=== PATIENT | female | born 1945 | race Caucasian/White ===

== ENCOUNTER 2022-12-19 12:36 | Emergency (ER) | payer OTHER ==
[2022-12-19] MEDS ORDERED: Acetaminophen 500 MG TAB ONE (13:36)
[2022-12-19] MEDS ORDERED: fentaNYL 50 mcg/mL 1 mL Vial ONE (13:43)
[2022-12-19] MEDS ORDERED: Ondansetron ODT 4 MG TAB ONE (13:43)
[2022-12-19] MEDS ORDERED: traMADol HCl 50 MG TAB ONE (14:13)
[2022-12-19 14:31] LABS: #Basophils 0.1 10x3/uL (0.0-0.2); #Eosinphils 0.1 10x3/uL (0.0-0.5); #Monocytes 0.8 10x3/uL (0.0-1.1); #Neutrophils 10.8 10x3/uL (1.5-8.4); %Basophils 0.5 % (0.0-2.0); %Eosinophils 0.7 % (0.0-6.0); %Lymphocytes 16.4 % (18.0-47.0); %Monocytes 5.6 % (0.0-10.0); Hematocrit 42.9 % (34.9-44.5); Hemoglobin 14.4 g/dL (12.0-15.5); Mean Corpuscular HGB CONC 33.6 g/dL (32.0-36.0); Mean Corpuscular Hemoglobin 32.1 pg (27.0-33.0); Mean Corpuscular Volume 95.8 fl (81.6-98.3); Mean Platelet Volume 10.3 fl (7.4-10.4); Platelet Count 196 10x3/uL (150-450); RBC Distribution Width 12.1 % (11.5-14.5); Red Blood Cell (RBC) Count 4.48 10x6/uL (3.90-5.03); White Blood Cell (WBC) Count 14.2 10x3/uL (3.5-10.5)
[2022-12-19 14:51] LABS: ALT (SGPT) 15 U/L (8-55); AST (SGOT) 21 U/L (5-34); Albumin 3.8 g/dL (3.4-4.8); Alkaline Phosphatase 69 U/L (40-110); Anion Gap 15 mmol/L (10-20); BUN (Urea Nitrogen) 14 mg/dL (9.8-20.1); Bilirubin, Total 0.5 mg/dL (0.2-1.2); Calc. Creatinine Clearance 0 mL/min (70-130); Calcium 8.8 mg/dL (7.8-10.44); Carbon Dioxide 18 mmol/L (23-31); Chloride 104 mmol/L (98-107); Estimated GFR 76; Globulin 3.5 g/dL (2.4-3.5); Glucose 116 mg/dL (83-110); Potassium 4.2 mmol/L (3.5-5.1); Protein, Total 7.3 g/dL (5.8-8.1); Sodium 133 mmol/L (136-145)
[2022-12-19 14:58] LABS: Troponin I Less than 0.010 ng/mL (< 0.028)
[2022-12-19] MEDS ORDERED: Calcium Carbonate 500 MG ChewTAB ONE (15:41)
== END 2022-12-19 16:02 | disposition home or self-care (01) ==
LOC: CSHERS 12:36
DX: S42.252A Displaced fracture of greater tuberosity of left humerus, initial encounter for closed fracture (principal); I10 Essential (primary) hypertension; W01.0XXA Fall on same level from slipping, tripping and stumbling without subsequent striking against object, initial encounter
CPT/HCPCS: 36415; 71045; 80053; 84484; 85025; 93005; J3010; Q0162

== ENCOUNTER 2024-06-27 19:14 | Emergency (ER) | payer OTHER | END 2024-06-27 21:00 | disposition home or self-care (01) | LOC: CSHERS 19:14 | DX: S00.83XA Contusion of other part of head, initial encounter (principal); I10 Essential (primary) hypertension; Z79.899 Other long term (current) drug therapy; W19.XXXA Unspecified fall, initial encounter; W22.8XXA Striking against or struck by other objects, initial encounter | CPT/HCPCS: 70450; 70486; 72125 ==

== ENCOUNTER 2024-08-05 12:56 | Outpatient (CLI) | payer OTHER | END 2024-08-05 12:57 | disposition home or self-care (01) | LOC: CSHCT 12:56 | PROVIDERS: ATTEND Family Medicine | DX: R93.89 Abnormal findings on diagnostic imaging of other specified body structures (principal); M94.8X8 Other specified disorders of cartilage, other site | CPT/HCPCS: 71250 ==